=== PATIENT | male | born 1965 | race Asian ===

== ENCOUNTER 2020-06-24 01:24 | Emergency (ER) | payer OTHER ==
[~2020-06-24] VITALS: Ht 177.8 cm; Wt 75.7 kg
[2020-06-24 01:30] VITALS: Ht 177.8 cm; Wt 75.7 kg
[2020-06-24 01:57] LABS: CALCIUM 9.9 mg/dL (8.5-10.1); CHLORIDE SERUM 101 mmol/L (98-107); CREATININE SERUM 1.3 mg/dL (0.7-1.3); GFR1 > 60 mL/min; GLUCOSE SERUM 277 mg/dL (74-106); POTASSIUM SERUM 4.6 mmol/L (3.5-5.1); SODIUM SERUM 137 mmol/L (136-145)
[2020-06-24 02:01] LABS: ALKALINE PHOSPHATASE 78 U/L (46-116); ALT/SGPT 19 U/L (16-63); AST/SGOT 9 U/L (15-37); BILIRUBIN TOTAL 0.47 mg/dL (0.20-1.00); LIPASE 125 IU/L (73-393); TOTAL PROTEIN, SERUM 7.6 g/dL (6.4-8.2)
[2020-06-24 02:18] LABS: PLATELET COUNT 296 x10^3mcL (152-348)
[2020-06-24 02:20] LABS: RED CELL DISTRIBUTION WIDTH 15.1 % (12.1-16.2)
[2020-06-24 03:34] VITALS: BP 147/76
== END 2020-06-24 03:34 | disposition home or self-care (01) ==
LOC: ED 01:24
PROVIDERS: Student in an Organized Health Care Education/Training Program
DX: R10.31 Right lower quadrant pain (principal); R31.9 Hematuria, unspecified; I10 Essential (primary) hypertension; E11.9 Type 2 diabetes mellitus without complications; Z88.1 Allergy status to other antibiotic agents
CPT/HCPCS: J1885; J2270; Q9967